=== PATIENT | female | born 1995 | race Caucasian/White ===

== ENCOUNTER 2017-12-08 15:03 | Emergency (ER) | payer MEDICAID, OTHER ==
[2017-12-08 15:03] VITALS: BMI 19.5
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
[2017-12-08] MEDS ORDERED: Tetracaine 0.5% Ophth 2 ML BOTTLE OD STA (15:50)
[2017-12-08 15:59] VITALS: O2SAT 100
[2017-12-08] MEDS ORDERED: TDAP Vaccine 0.5 mL Syr IM ONE (16:05)
[2017-12-08 17:01] VITALS: BP 132/86; PULSE 75; RESP 18; TEMP 98.4
== END 2017-12-08 17:06 | disposition home or self-care (01) ==
LOC: ED 15:03
DX: S05.01XA Injury of conjunctiva and corneal abrasion without foreign body, right eye, initial encounter (principal); W50.0XXA Accidental hit or strike by another person, initial encounter; Y92.009 Unspecified place in unspecified non-institutional (private) residence as the place of occurrence of the external cause; F17.210 Nicotine dependence, cigarettes, uncomplicated; Z23 Encounter for immunization; O26.899 Other specified pregnancy related conditions, unspecified trimester